=== PATIENT | female | born 1970 | race American Indian/Alaskan Native ===

== ENCOUNTER 2016-10-05 14:25 | Inpatient (IN) | payer MEDICAID ==
[2016-10-05 15:44] LABS: Hematocrit 25.6 % (30.3-42.9); Hemoglobin 8.1 gm/dl (10.1-14.3); Mean Corpuscular HGB Conc 32 % (30-34); Mean Corpuscular Volume 70 fl (79-97); Platelet Count 238 K/mm3 (140-440); Red Blood Count 3.64 M/mm3 (3.65-5.03); Red Cell Distribution Width 18.9 % (13.2-15.2); White Blood Count 8.4 K/mm3 (4.5-11.0)
[2016-10-05 15:45] LABS: Mean Corpuscular Hemoglobin 22 pg (28-32)
[2016-10-05 16:24] LABS: Basophils % (Manual) 0 % (0.0-1.8); Blastocytes % (Manual) 0 %
[2016-10-05 16:25] LABS: Hypochromasia 1+
[2016-10-05 16:26] LABS: Anisocytosis 2+; Diff Status Complete; Poikilocytosis 1+
[2016-10-05 16:38] LABS: Anion Gap 23 mmol/L; BUN/Creatinine Ratio 18.18; Blood Urea Nitrogen 20 mg/dL (7-17); Calcium 9.2 mg/dL (8.4-10.2); Carbon Dioxide 19 mmol/L (22-30); Chloride 102.4 mmol/L (98-107); Glucose 139 mg/dL (65-100); Sodium 140 mmol/L (137-145)
[2016-10-05 17:25] LABS: Bacteria,Urine 1+ /HPF (Negative); Bilirubin,Urine NEG (Negative); Blood,Urine NEG (Negative); Ketones,Urine NEG (Negative); Leukocyte Esterase,Urine LG (Negative); Mucus,Urine FEW /HPF; Nitrite,Urine NEG (Negative); Urobilinogen,Urine < 2.0 mg/dL (<2.0)
[2016-10-05] MEDS ORDERED: NACL 0.9% 1000 ML 1,000 ML IV ONE (19:57)
--- NOTE | 2016-10-05 20:06 | Emergency Department Report ---
ED Dizziness HPI - General Chief Complaint: Dizziness Stated Complaint: DIZZINESS/BLURRED VISION Time Seen by Provider: 10/05/16 18:55 Source: patient Mode of arrival: Ambulatory Limitations: No Limitations - History of Present Illness Initial Comments: PT c/o dizziness x 1 week. PT states she was seen at her PCP 3 weeks ago and she was told that she is anemic and that her DM was not controlled. PT states her bg at the time was around 375. PT states she made diet changes and her bg has improved but for the last week, she has become increasingly dizzy. PT states she went to her PCP office yesterday and was dx with UTI. PT was also given referral to endocrinology and hematology. PT states she has a known hx of uterine fibroids and is supposed to have surgery on them once her bg is controlled. 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 PT states the dizziness makes her feel like she might pass out. PT states the dizziness improves with rest/ laying but worsens when she gets up. Pt's lmp was 09-09-16 MD Complaint: dizziness, lightheadedness Onset/Timin -: Gradual, week(s) Timing: gradual onset Description: lightheadedness, near-syncope History of Same: No History of Trauma: No Severity: severe Improves With: rest Worsens With: position, exertion Associated Symptoms: shortness of breath. denies: chest pain, fever/chills, syncope - Related Data Previous Rx's Medication Instructions Recorded Last Taken Type Amoxicillin/K Clav Tab [Augmentin 1 each PO Q12HR #6 tablet 10/06/16 Unknown Rx 500 MG TAB] Ferrous Gluconate [Fergon 325 MG 325 mg PO QDAY #30 tablet 10/06/16 Unknown Rx tab] HYDROcodone/APAP 5-325 [[place] 1 each PO Q6HR PRN #20 tablet 10/06/16 Unknown Rx 5-325 mg TAB] Ibuprofen [Motrin 600 MG tab] 600 mg PO Q8H PRN #40 tablet 10/06/16 Unknown Rx metFORMIN [Glucophage] 500 mg PO BID #30 tablet 10/06/16 Unknown Rx Allergies Allergy/AdvReac Type Severity Reaction Status Date / Time No Known Allergies Allergy Unverified 04/02/13 12:25 ED Review of Systems ROS: Stated complaint: DIZZINESS/BLURRED VISION Other details as noted in HPI Comment: All other systems reviewed and negative Constitutional: denies: fever Respiratory: shortness of breath. denies: cough Cardiovascular: denies: syncope Gastrointestinal: abdominal pain. denies: nausea, vomiting Genitourinary: denies: dysuria, abnormal menses Neurological: denies: vertigo ED Past Medical Hx - Past Medical History Previous Medical History?: Yes Hx Diabetes: Yes - Surgical History Past Surgical History?: Yes Additional Surgical History: tubal ligation - Social History Smoking Status: Former Smoker Substance Use Type: Alcohol, Marijuana - Medications Home Medications: Home Medications Medication Instructions Recorded Confirmed Last Taken Type Amoxicillin/K Clav Tab [Augmentin 1 each PO Q12HR #6 tablet 10/06/16 Unknown Rx 500 MG TAB] Ferrous Gluconate [Fergon 325 MG 325 mg PO QDAY #30 tablet 10/06/16 Unknown Rx tab] HYDROcodone/APAP 5-325 [[place] 1 each PO Q6HR PRN #20 tablet 10/06/16 Unknown Rx 5-325 mg TAB] Ibuprofen [Motrin 600 MG tab] 600 mg PO Q8H PRN #40 tablet 10/06/16 Unknown Rx metFORMIN [Glucophage] 500 mg PO BID #30 tablet 10/06/16 Unknown Rx ED Physical Exam - General Limitations: No Limitations General appearance: alert, in no apparent distress - Head Head exam: Present: atraumatic, normocephalic, normal inspection - Eye Eye exam: Present: normal appearance, EOMI, other (pale conjunctival sac) Pupils: Present: normal accommodation - ENT ENT exam: Present: normal exam, mucous membranes moist, normal external ear exam - Neck Neck exam: Present: normal inspection, full ROM. Absent: tenderness, meningismus, lymphadenopathy - Respiratory Respiratory exam: Present: normal lung sounds bilaterally. Absent: respiratory distress, wheezes - Cardiovascular Cardiovascular Exam: Present: normal rhythm, tachycardia - GI/Abdominal GI/Abdominal exam: Present: soft, mass (enlarged uterus palpated at 28 weeks gestation ) - Rectal Rectal exam: Present: normal inspection, normal rectal tone, heme (-) stool. Absent: black stool, bloody stool, hemorrhoids - Extremities Exam Extremities exam: Present: normal inspection, full ROM - Back Exam Back exam: Present: normal inspection, full ROM. Absent: tenderness, CVA tenderness (R), CVA tenderness (L) - Neurological Exam Neurological exam: Present: alert, oriented X3, CN II-XII intact, normal gait - Psychiatric Psychiatric exam: Present: normal affect, normal mood - Skin Skin exam: Present: warm, dry, intact ED Course Vital Signs 10/05/16 10/06/16 15:08 01:10 Temperature 98.9 F 98.1 F Pulse Rate 100 H 88 Respiratory 20 16 Rate Blood Pressure 137/84 Blood Pressure 154/96 [Right] O2 Sat by Pulse 100 99 Oximetry - Reevaluation(s) Reevaluation #1: 10/05/16 20:12 PT aware of lab results and plan of care. Reevaluation #2: 10/05/16 21:15 PT received 1 L NS bolus while in Ed. PT states she still feels dizzy/ lightheaded. PT's guiac negative. PT agrees to admission. Dr Lira aware of pt and agrees to plan of care. - Consultations Consultation #1: 10/05/16 21:52 Dr padilla consulted, will see pt for symptomatic anemia - Pulse Oximetry Interpretation Digit-Finger Initial Pulse Oximetry Readin Actions Taken: none ED Medical Decision Making - Lab Data Result diagrams: 10/05/16 15:27 10/05/16 15:27 - EKG Data -: EKG Interpreted by Me EKG shows normal: sinus rhythm Rate: normal - Medical Decision Making 46 year old female with symptomatic anemia. No improvement after 1L NS bolus. guiac negative. Will admit. - Differential Diagnosis hyperglycemia, anemia, arrhythmia, uti, dehydration, hyptension Critical Care Time: No Critical care attestation.: If time is entered above; I have spent that time in minutes in the direct care of this critically ill patient, excluding procedure time. ED Disposition Clinical Impression: Symptomatic anemia UTI (urinary tract infection) Qualifiers: Urinary tract infection type: site unspecified Hematuria presence: without hematuria Qualified Code(s): N39.0 - Urinary tract infection, site not specified Disposition: OP ADMITTED IP TO THIS HOSP Is pt being admited?: Yes Does the pt Need Aspirin: No Condition: Stable Time of Disposition: 21:54
[2016-10-06] MEDS ORDERED: MILK OF MAGNESIA PO PRN (00:14)
[2016-10-06] MEDS ORDERED: ZOFRAN IV PRN (00:14)
[2016-10-06] MEDS ORDERED: DULCOLAX PR PRN (00:14)
[2016-10-06] MEDS ORDERED: TYLENOL PO PRN (00:14)
[2016-10-06] MEDS ORDERED: NACL 0.9% 500 ML 500 ML IV ONE (00:14)
[2016-10-06] MEDS ORDERED: BENADRYL IV PRN (00:14)
--- NOTE | 2016-10-06 00:21 | History and Physical Report ---
History of Present Illness Date of examination: 10/06/16 History of present illness: 46 -year-old woman with history of diabetes comes emergency room with complaints of feeling dizzy for one week, shortness of breath, symptoms are worse with exertion. She saw her primary care physician 2 weeks ago, she was told she needs to see a mail order biller for anemia. Patient with a history of fibroids, menorrhagia Patient denies chest pain, palpitation, cough, abdominal pain, hematochezia, dysuria, frequency, focal weakness, dysarthria, fever chills, polydipsia polyuria, hot or cold intolerance, easy bruisability, or rash or bleeding from mucosal membrane, rhinorrhea, epistaxis, earache, tinnitus, blurry vision, eye discharge, anxiety, depression. Other review of systems negative PAST SURGICAL HISTORY: None SOCIAL HISTORY: Alcohol use, no tobacco or drugs FAMILY HISTORY: Hypertension Medications and Allergies Allergies Allergy/AdvReac Type Severity Reaction Status Date / Time No Known Allergies Allergy Unverified 04/02/13 12:25 Home Medications Medication Instructions Recorded Confirmed Last Taken Type Ibuprofen [Motrin] 800 mg PO TID PRN #30 tablet 04/02/13 Unknown Rx metFORMIN [Glucophage] 500 mg PO BID 04/02/13 04/02/13 04/01/13 18:00 History Clindamycin [Clindamycin CAP] 300 mg PO Q6H #40 capsule 08/11/14 Unknown Rx HYDROcodone/APAP 5-325 [[place] 1 each PO Q6HR PRN #20 tablet 08/11/14 Unknown Rx 5-325 mg TAB] Ibuprofen [Motrin] 600 mg PO Q8H PRN #40 tablet 08/11/14 Unknown Rx Exam - Physical Exam Narrative exam: Gen. appearance: Patient lying in bed, no apparent distress HEENT: Normocephalic, atraumatic, pupils equally round and reactive to light, extraocular movement intact, and no sclericterus,. No JVD or thyromegaly or nodule,neck supple, no carotid bruit ,mucous membranes moist, no exudate or erythema Heart: S1, S2, regular rate and rhythm Lungs: Clear to auscultation bilaterally, breathing comfortable Abdomen: Positive bowel sounds, nontender, nondistended, no organomegaly Extremity: No edema, cyanosis, clubbing Skin: No rash, nodules, warm, dry Neuro: Oriented 3, cranial nerves II-12 intact, speech is fluent, motor and sensory intact - Constitutional Vitals: Temp Pulse Resp BP Pulse Ox 98.9 F 100 H 20 137/84 100 10/05/16 15:08 10/05/16 15:08 10/05/16 15:08 10/05/16 15:08 10/05/16 15:08 Results - Labs CBC & Chem 7: 10/05/16 15:27 10/05/16 15:27 Labs: Abnormal lab results 10/05/16 10/05/16 10/05/16 Range/Units 15:05 15:27 15:27 RBC 3.64 L (3.65-5.03) M/mm3 Hgb 8.1 L (10.1-14.3) gm/dl Hct 25.6 L (30.3-42.9) % MCV 70 L (79-97) fl MCH 22 L (28-32) pg RDW 18.9 H (13.2-15.2) % Lymphocytes % (Manual) 41.0 H (13.4-35.0) % Carbon Dioxide 19 L (22-30) mmol/L BUN 20 H (7-17) mg/dL Glucose 139 H (65-100) mg/dL POC Glucose 137 H (70-105) Urine WBC (Auto) (0.0-6.0) /HPF 10/05/16 Range/Units 16:50 RBC (3.65-5.03) M/mm3 Hgb (10.1-14.3) gm/dl Hct (30.3-42.9) % MCV (79-97) fl MCH (28-32) pg RDW (13.2-15.2) % Lymphocytes % (Manual) (13.4-35.0) % Carbon Dioxide (22-30) mmol/L BUN (7-17) mg/dL Glucose (65-100) mg/dL POC Glucose (70-105) Urine WBC (Auto) 22.0 H (0.0-6.0) /HPF Assessment and Plan Symptomatic anemia UTI Diabetes Admits medicine Transfuse packed red blood cells Check iron studies, START IV rocephin, Check fingersticks initiate insulin sliding scale DVT prophylaxis with SCD
[2016-10-06] MEDS: ROCEPHIN/NS 1 GM/50 ML 1 GM/50 ML BAG IV SCH ×2 (02:06→10:45)
--- NOTE | 2016-10-06 09:46 | Admit Criteria Form ---
Admission Criteria Documentation: HEMATOLOGY GRG Clinical Indications for Admission to Inpatient Care (Place 'X' for any and all applicable criteria): Hospital admission is needed for appropriate care of the patient because of ANY ONE of the following: [ X]I. Severe anemia indicated by ANY ONE of the following (1)(2) [ ]a) Altered mental status [ ]b) Syncope [X ]c) Other findings suggesting inadequate perfusion [ ]d) Chest pain [ ]e) Exertional dyspnea [ ]f) Treatment with transfusion or volume replacement is ineffective at resolving ANY ONE of the following [A]: [ ]i) Tachycardia for age [ ]ii) Orthostatic vital sign changes as indicated by ANY ONE of the following (3) [ ]1) Fall in SBP of 20 mm Hg or more 1 to 3 minutes after patient sits or stands from recumbent position [ ]2) Fall in DBP of 10 mm Hg or more 1 to 3 minutes after patient sits or stands from recumbent position [ ]II. High-risk febrile neutropenia [B] as indicated by ANY ONE of the following(4)(5) [ ]a) Hemodynamic instability [ ]b) Hypoxemia [ ]c) Tachypnea [ ]d) Altered mental status [ ]e) New onset abdominal pain [ ]f) New onset vomiting or diarrhea [ ]g) Pneumonia [ ]h) Profound neutropenia [C] anticipated to extend for more than 7 days [ ]i) Oral or gastrointestinal mucositis that interferes with swallowing or causes severe diarrhea [ ]j) Evidence of significant focal infection (eg, cellulitis, central line or catheter infection, perirectal abscess) [ ]k) Leukemia or lymphoma induction therapy [ ]l) Bone marrow transplant patient [ ]m) Renal insufficiency (eg, GFR of less than 30 mL/min/1.73m2 (0.5 mL/sec/1.73m2) [ ]n) Severe liver dysfunction (transaminase levels greater than 5 times normal) [ ]o) Platelet count less than 50,000/mm3 (50 x109/L)(6) [ ]p) [employer] Association for Supportive Care in Cancer (MASCC) Risk Index score of < 21 [D] [ ]III. High-risk low platelet count as indicated by ANY ONE of the following(8) (9) [ ]a) Severe or life-threatening bleeding (eg, intracranial, major gastrointestinal, or extensive mucosal bleeding), with any reduced platelet count [ ]b) Platelet count less than 20,000/mm3 (20 x109/L) with any active bleeding [ ]c) Platelet count less than 10,000/mm3 (10 x109/L) with minor purpura or petechiae [ ]d) Platelet count less than 5000/mm3 (5 x109/L) [ ]e) Low platelet count with hemolytic anemia [ ]IV.Active hemolysis with high-risk findings, including ANY ONE of the following(2)(10)(11) [ ]a) Hematocrit less than 25% (0.25) [ ]b) Rapidly progressing anemia [ ]c) Thrombocytopenia(12)(13) [ ]d) Evidence of thrombosis or new renal insufficiency [ ]V. Bleeding disorder with high-risk features (eg, hemophilia, coagulopathy) as indicated by ANY ONE of the following (2)(14)(15) [ ]a) Central nervous system bleeding [ ]b) Retroperitoneal bleeding [ ]c) Retropharyngeal bleeding [ ]d) Gastrointestinal bleeding (22) [ ]e) Purpura [ ]f) Disseminated intravascular coagulation(23) [ ]g) Major trauma [ ]h) Deep laceration [ ]i) Head trauma [ ]j) Any trauma with internal hematoma (eg, retroperitoneal, ocular) [ ]k) Failed outpatient management [ ]. Severe over-anticoagulation or high-risk situation as indicated by ANY ONE of the following(24)(25) [ ]a) Active bleeding [ ]b) International normalized ratio 5 or greater and rapid reversal needed [ ]c) International normalized ratio 9 or greater [ ]VII. Congenital immunodeficiency states with severe morbidity as indicated by ANY ONE of the following(26)(27) [ ]a) Severe infection [ ]b) Bone marrow transplant needed (Also use Medical Oncology GRG) [ ]VIII. Hyperviscosity syndrome with high-risk indicators indicated by ANY ONE of the following (2)(28)(29)(30)(31) [ ]a) Polycythemia vera with hematocrit greater than 60% (0.60) [ ]b) Elevated platelet count associated with thrombosis, bleeding, or life-threatening organ dysfunction [ ]c) Severe signs or symptoms from elevated red cell, white cell, or protein levels, including ANY ONE of the following: [ ]i) Mental status change [ ]ii) Dyspnea [ ]iii) Chest x-ray infiltrate [ ]iv) Visual changes [ ]v) Retinal abnormalities [ ]vi) Neuromuscular symptoms [ ]vii) Suspected ischemia or thrombosis [ ]viii) Bleeding [ ]IX. Methemoglobinemia greater than 15% (0.15) or severe symptoms persist after emergency treatment (32)(33) [ ]X. Spleen trauma with blood loss or other need for acute (medical) treatment (34) [ ]XI. Hematology condition and ALL of the following: [ ]a) Symptom or finding for which emergency and observation care have failed or are not considered appropriate (Also use General Criteria: Observation Care as appropriate) [ ]b) Presence of ANY ONE of the following: [ ]i) A General Admission Criteria [ ]ii) A Pediatric General Admission Criteria The original [facility] content created by [facility] has been revised. The portions of the content which have been revised are identified through the use of italic text or in bold, and [facility] has neither reviewed nor approved the modified material. All other unmodified content is copyright [facility]. Please see references footnoted in the original [facility] edition 2016 Admission Criteria Met: Yes
--- NOTE | 2016-10-06 15:15 | Discharge Summary ---
Providers - Providers Date of Admission: 10/06/16 00:14 Attending physician: JOSE ZAPATA MD Primary care physician: HAYLEE BLANCA Hospitalization Condition: Stable Disposition: DISCHARGED TO HOME OR SELFCARE Time spent for discharge: 35 minutes Core Measure Documentation - Palliative Care Palliative Care/ Comfort Measures: Not Applicable Exam - Constitutional Vitals: Temp Pulse Resp BP Pulse Ox 98.7 F 102 H 16 105/68 99 10/06/16 07:56 10/06/16 07:56 10/06/16 07:56 10/06/16 07:56 10/06/16 09:15 General appearance: Present: no acute distress, well-nourished - EENT Eyes: Present: PERRL ENT: hearing intact, clear oral mucosa - Neck Neck: Present: supple, normal ROM - Respiratory Respiratory effort: normal Respiratory: bilateral: CTA - Cardiovascular Heart Sounds: Present: S1 & S2. Absent: rub, click - Extremities Extremities: pulses symmetrical, No edema Peripheral Pulses: within normal limits - Abdominal General gastrointestinal: Present: soft, non-tender, non-distended, normal bowel sounds Female genitourinary: Present: normal - Integumentary Integumentary: Present: clear, warm, dry - Musculoskeletal Musculoskeletal: gait normal, strength equal bilaterally - Psychiatric Psychiatric: appropriate mood/affect, intact judgment & insight - Neurologic Neurologic: CNII-XII intact, moves all extremities Plan Follow up with: HAYLEE LBANCA MD [Primary Care Provider] - 3-5 Days Prescriptions: Ferrous Gluconate [Fergon 325 MG tab] 325 mg PO QDAY #30 tablet HYDROcodone/APAP 5-325 [[place] 5-325 mg TAB] 1 each PO Q6HR PRN #20 tablet PRN Reason: Pain Ibuprofen [Motrin 600 MG tab] 600 mg PO Q8H PRN #40 tablet PRN Reason: Pain metFORMIN [Glucophage] 500 mg PO BID #30 tablet
[2016-10-06 15:35] VITALS: BP 126/64
== END 2016-10-06 16:43 | disposition home or self-care (01) | DRG 812 ==
LOC: ED 14:25 → 3A 10-06 00:14
PROVIDERS: ADMIT Internal Medicine; ATTEND Internal Medicine
DX: D64.9 Anemia, unspecified (principal); N39.0 Urinary tract infection, site not specified; E11.9 Type 2 diabetes mellitus without complications; F12.90 Cannabis use, unspecified, uncomplicated; D25.9 Leiomyoma of uterus, unspecified; Z98.51 Tubal ligation status; Z72.89 Other problems related to lifestyle; Z82.49 Family history of ischemic heart disease and other diseases of the circulatory system
CPT/HCPCS: 36415; 80048; 81001; 81025; 82271; 82728; 82962; 83540; 84484; 85007; 85025; 86850; 86900; 86901; 86920; 87086; 93005; 93010; J0696; J1200; J7030; J7040

== ENCOUNTER 2017-03-03 15:31 | Outpatient (CLI) | payer MEDICAID ==
--- NOTE | 2017-03-04 09:48 | Magnetic Resonance Report ---
MRI PELVIS WITHOUT CONTRAST INDICATION: Uterine fibroids. COMPARISON: 04/02/2013 pelvic ultrasound. FINDINGS: Noncontrast multiplanar and multisequence pelvic MRI demonstrates a heterogeneous, myelitis, extremely enlarged uterus with its dome rising approximately 8-9 cm above the umbilicus and is estimated at 23 cm in length x approximately 14 cm AP x 16 cm transverse. Few dominant fibroids noted as follows: 1. Largest heterogeneous, predominantly solid fundal fibroid is approximately 14 cm, displacing the endometrium anteroinferiorly. 2. Remainder mid to lower uterus demonstrates 4 or 5 fibroids with the largest anteriorly approximately 4 cm, including one that is partly exophytic as on axial series 6, image 23. Small amount of physiologic endometrial canal fluid noted along its imaged portions. Some pelvic bowel loops displaced due to the enlarged uterus. Mild right hydronephrosis from possible compression of the proximal ureter also suspected. Ovaries questionably seen as on axial image 27 on the right and 30 on the left. Grossly normal bowel, marrow and muscle signal. CONCLUSION: Markedly enlarged, myomatous uterus with possible mild hydronephrosis, as described. Thank you for the opportunity to participate in this patient's care.
== END 2017-03-03 15:32 | disposition home or self-care (01) ==
LOC: MRI 15:31
PROVIDERS: ATTEND Radiology Diagnostic Radiology
DX: D25.0 Submucous leiomyoma of uterus (principal); N85.2 Hypertrophy of uterus; Z87.891 Personal history of nicotine dependence
CPT/HCPCS: 72195

== ENCOUNTER 2021-12-12 12:36 | Emergency (ER) | payer SELFPAY ==
--- NOTE | 2021-12-12 15:09 | Emergency Department Report ---
ED General Adult HPI - General Chief complaint: Medical Clearance Stated complaint: BLOOD PRESSURE/SUGAR Time Seen by Provider: 12/12/21 13:47 Source: patient Mode of arrival: Ambulatory Limitations: No Limitations - History of Present Illness Initial comments: 51-year-old -[place] female patient with history of hypertension presents for refill of her blood pressure medication. She states she has been on losartan 50 mg and is unable to get into see her PCP. She denies any headache, shortness of breath, chest pain and states she is feeling well today. No other complaints or concerns per patient. Severity scale (0 -10): 0 - Related Data Home Medications Medication Instructions Recorded Confirmed Last Taken metFORMIN [Glucophage] 825 mg PO BID 08/30/17 08/30/17 Unknown oxyCODONE /ACETAMINOPHEN 5 - 325 mg PO Q6HR PRN 08/30/17 08/30/17 Unknown Previous Rx's Medication Instructions Recorded Last Taken Type Ferrous Gluconate [Fergon 325 MG 325 mg PO QDAY #30 tablet 10/06/16 Unknown Rx tab] Docusate Sodium [Colace CAP] 100 mg PO BID #60 capsule 09/08/17 Unknown Rx Magnesium Hydroxide [Milk of 30 ml PO QDAY #1 bottle 09/08/17 Unknown Rx Magnesia] Oxycodone HCl/Acetaminophen 1 each PO Q6HR PRN #10 tablet 09/08/17 Unknown Rx [Percocet 10/325 mg] polyethylene glycoL 3350 [Miralax 17 gm PO BID #1 bottle 09/08/17 Unknown Rx 3350] Insulin NPH/Regular [Novolin 70/30] 10 unit SUB-Q BIDDIAB #1 vial 09/09/17 Unknown Rx Lancets/Blood Glucose Strips [Fora 1 each MC DAILY #99 combo..pkg 09/09/17 Unknown Rx [id number] Strp-Lnct] Ibuprofen [Motrin 800 MG tab] 800 mg PO Q8HR PRN #20 tablet 12/14/19 Unknown Rx Ondansetron [Zofran Odt] 4 mg PO Q8HR PRN #15 tab.rapdis 12/14/19 Unknown Rx Ferrous Sulfate [Feosol 325 MG tab] 325 mg PO QDAY #30 tablet 03/28/21 Unknown Rx Insulin NPH, Human [NovoLIN N] 5 unit SUB-Q BIDDIAB 30 Days 03/28/21 Unknown Rx amLODIPine 10 mg PO QDAY #30 tablet 03/28/21 Unknown Rx Losartan [Cozaar] 50 mg PO QDAY 30 Days #30 tablet 12/12/21 Unknown Rx Allergies Allergy/AdvReac Type Severity Reaction Status Date / Time No Known Allergies Allergy Verified 09/22/21 04:20 ED Review of Systems ROS: Stated complaint: BLOOD PRESSURE/SUGAR Other details as noted in HPI Constitutional: denies: chills, fever Respiratory: denies: shortness of breath Cardiovascular: denies: chest pain Neurological: denies: headache, numbness, paresthesias ED Past Medical Hx - Past Medical History Previous Medical History?: Yes Hx Hypertension: Yes Hx Congestive Heart Failure: No Hx Diabetes: Yes Hx Deep Vein Thrombosis: No Hx Arthritis: No Hx Asthma: No Hx COPD: No Hx HIV: No - Surgical History Past Surgical History?: Yes Hx Pacemaker: No Hx Internal Defibrillator: No Additional Surgical History: Tubal ligation, fibroidectomy - Social History Smoking Status: Never Smoker - Medications Home Medications: Home Medications Medication Instructions Recorded Confirmed Last Taken Type Ferrous Gluconate [Fergon 325 MG 325 mg PO QDAY #30 tablet 10/06/16 08/30/17 Unknown Rx tab] metFORMIN [Glucophage] 825 mg PO BID 08/30/17 08/30/17 Unknown History oxyCODONE /ACETAMINOPHEN 5 - 325 mg PO Q6HR PRN 08/30/17 08/30/17 Unknown History Docusate Sodium [Colace CAP] 100 mg PO BID #60 capsule 09/08/17 Unknown Rx Magnesium Hydroxide [Milk of 30 ml PO QDAY #1 bottle 09/08/17 Unknown Rx Magnesia] Oxycodone HCl/Acetaminophen 1 each PO Q6HR PRN #10 tablet 09/08/17 Unknown Rx [Percocet 10/325 mg] polyethylene glycoL 3350 [Miralax 17 gm PO BID #1 bottle 09/08/17 Unknown Rx 3350] Insulin NPH/Regular [Novolin 70/30] 10 unit SUB-Q BIDDIAB #1 vial 09/09/17 Unknown Rx Lancets/Blood Glucose Strips [Fora 1 each MC DAILY #99 combo..pkg 09/09/17 Unknown Rx [id number] Strp-Lnct] Ibuprofen [Motrin 800 MG tab] 800 mg PO Q8HR PRN #20 tablet 12/14/19 Unknown Rx Ondansetron [Zofran Odt] 4 mg PO Q8HR PRN #15 tab.rapdis 12/14/19 Unknown Rx Ferrous Sulfate [Feosol 325 MG tab] 325 mg PO QDAY #30 tablet 03/28/21 Unknown Rx Insulin NPH, Human [NovoLIN N] 5 unit SUB-Q BIDDIAB 30 Days 03/28/21 Unknown Rx amLODIPine 10 mg PO QDAY #30 tablet 03/28/21 Unknown Rx Losartan [Cozaar] 50 mg PO QDAY 30 Days #30 tablet 12/12/21 Unknown Rx ED Physical Exam - General Limitations: No Limitations General appearance: alert, in no apparent distress - Head Head exam: Present: atraumatic, normocephalic - Eye Eye exam: Present: normal appearance - Respiratory Respiratory exam: Absent: respiratory distress - Cardiovascular Cardiovascular Exam: Present: regular rate - Neurological Exam Neurological exam: Present: alert, oriented X3, normal gait - Psychiatric Psychiatric exam: Present: normal affect, normal mood - Skin Skin exam: Present: warm, dry, intact, normal color. Absent: rash ED Course Vital Signs 12/12/21 13:17 Temperature 98.1 F Pulse Rate 88 Respiratory 20 Rate Blood Pressure 149/53 [Right] O2 Sat by Pulse 99 Oximetry ED Medical Decision Making - Medical Decision Making 51-year-old -[place] female patient with history of hypertension presents for refill of her blood pressure medication. She states she has been on losartan 50 mg and is unable to get into see her PCP. She denies any headache, shortness of breath, chest pain and states she is feeling well today. No other complaints or concerns per patient. Losartan refill provided. Recommend follow-up with PCP for further management of blood pressure Critical care attestation.: If time is entered above; I have spent that time in minutes in the direct care of this critically ill patient, excluding procedure time. ED Disposition Clinical Impression: Encounter for medication refill Disposition: 01 HOME / SELF CARE / HOMELESS Is pt being admited?: No Condition: Stable Prescriptions: Losartan [Cozaar] 50 mg PO QDAY 30 Days #30 tablet Referrals: [facility] [Provider Group] - 3-5 Days
[2021-12-12 15:37] VITALS: BP 151/91
== END 2021-12-12 15:34 | disposition home or self-care (01) ==
LOC: ED 12:36
DX: I10 Essential (primary) hypertension (principal); Z76.0 Encounter for issue of repeat prescription; E11.9 Type 2 diabetes mellitus without complications
CPT/HCPCS: 99282